=== PATIENT | male | born 1950 | race Caucasian/White ===

== ENCOUNTER 2017-04-05 00:58 | Emergency (ER) | payer MEDICARE, BC ==
[2017-04-05 02:23] VITALS: BP 152/90
[2017-04-05] MEDS ORDERED: cefTRIAXone 1,000 MG VIAL IM ONE (03:01)
--- NOTE | 2017-04-05 03:01 | EDM.PDOC ---
ED HPI GENERAL MEDICAL PROBLEM - General Chief Complaint: Genitourinary Problem Stated Complaint: BLOOD ON URINE Time Seen by Provider: 04/05/17 02:25 Source of Information: Reports: Patient History Limitations: Reports: No Limitations - History of Present Illness INITIAL COMMENTS - FREE TEXT/NARRATIVE: c/o blood in urine at 9:30 PM and midnight there was blood in his urine, slight dyruria, no f/c/d, no previous UTI dx bladder CA 01/[address] Malagon which was surgically removed, received topical chemo x 1, when biopsy results came back pt told to come for f/u in , has apt 04/24 begun on prostate pill bid ~4m ago also on Eliquis - Related Data Allergies Allergy/AdvReac Type Severity Reaction Status Date / Time No Known Allergies Allergy Verified 01/12/16 09:17 Home Meds: Home Meds Multivitamin [Daily Vitamin] 1 each PO BID 05/02/15 [History] Insulin Aspart Protam & Aspart [Novolog Mix 70-30 Flexpen Syrn] 12 unit SQ WITHDINNER 12/14/15 [History] Insuln Asp Prot/Insulin Aspart [NovoLOG Mix 70-30] 22 unit SUBCUT WITHBREAKFAST 12/14/15 [History] Pyridostigmine [Mestinon] 60 mg PO QID 12/14/15 [History] Valsartan/Hydrochlorothiazide [Valsartan-Hctz 80-12.5 mg Tab] 1 tab PO DAILY [History] azaTHIOprine [Imuran] 50 mg PO BID 12/14/15 [History] metFORMIN [Glucophage] 500 mg PO BID 12/14/15 [History] predniSONE [Prednisone] 40 mg PO DAILY 12/14/15 [History] Pantoprazole Sodium [Protonix] 40 mg PO DAILY #30 tablet. 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 Musculoskeletal History: Reports: Other (See Below) Other Musculoskeletal History: myasthenia gravis Neurological History: Reports: None Psychiatric History: Reports: None Endocrine/Metabolic History: Reports: Diabetes, Type II, Obesity/BMI 30+ Hematologic History: Reports: Anemia, Blood Transfusion(s) Immunologic History: Reports: None Oncologic (Cancer) History: Reports: None Dermatologic History: Reports: None - Past Surgical History Head Surgeries/Procedures: Reports: None HEENT Surgical History: Reports: Oral Surgery, Other (See Below) Musculoskeletal Surgical History: Reports: Arthroscopic Knee Social & Family History - Family History Neurological: Reports: CVA Oncologic: Reports: None - Tobacco Use Smoking Status *Q: Former Smoker Used Tobacco, but Quit: Yes Month Tobacco Last Used: sep Second Hand Smoke Exposure: No - Caffeine Use Caffeine Use: Reports: Coffee - Recreational Drug Use Recreational Drug Use: No ED ROS GENERAL - Review of Systems Review Of Systems: See Below Constitutional: Reports: No Symptoms HEENT: Reports: No Symptoms Respiratory: Reports: No Symptoms Cardiovascular: Reports: No Symptoms Endocrine: Reports: No Symptoms GI/Abdominal: Reports: No Symptoms : Reports: Dysuria, Hematuria Musculoskeletal: Reports: No Symptoms Skin: Reports: No Symptoms Neurological: Reports: No Symptoms Psychiatric: Reports: No Symptoms Hematologic/Lymphatic: Reports: No Symptoms Immunologic: Reports: No Symptoms ED EXAM, RENAL/ - Physical Exam Exam: See Below Exam Limited By: No Limitations General Appearance: Alert, WD/WN, No Apparent Distress Nose: Normal Inspection Throat/Mouth: Normal Inspection Head: Atraumatic, Normocephalic Neck: Normal Inspection, Supple, Non-Tender, Full Range of Motion. No: Lymphadenopathy (R) Respiratory/Chest: No Respiratory Distress, Lungs Clear, Normal Breath Sounds, No Accessory Muscle Use, Chest Non-Tender Cardiovascular: Regular Rate, Rhythm, No Edema, No Gallop, No Rub, Other (2/6 ADITYA at LSB) GI/Abdominal: Soft, Non-Tender, No Mass Back Exam: Normal Inspection, Full Range of Motion. No: CVA Tenderness (R), CVA Tenderness (L) Extremities: Normal Inspection, Normal Range of Motion, Non-Tender, Normal Capillary Refill, No Pedal Edema Neurological: Alert, Oriented, Normal Cognition, No Motor/Sensory Deficits Psychiatric: Normal Affect, Normal Mood Skin Exam: Warm, Dry, Intact, Normal Color, No Rash Lymphatic: No Adenopathy Course - Vital Signs Last Recorded V/S: Last Vital Signs Temp 36.4 C 04/05/17 01:05 Pulse 74 04/05/17 01:05 Resp 18 04/05/17 01:05 BP 152/90 H 04/05/17 01:05 Pulse Ox 95 04/05/17 01:05 - Orders/Labs/Meds Orders: Active Orders 24 hr Category Date Time Status CULTURE URINE [RM] Stat Lab 04/05/17 02:40 Uncollected Labs: Laboratory Tests 04/05/17 Range/Units 01:59 Urine Color Brown (YELLOW) Urine Appearance Cloudy (CLEAR) Urine pH 5.0 (5.0-6.5) Ur Specific [place] 1.020 (1.010-1.025) Urine Protein 100 H (NEGATIVE) mg/dL Urine Glucose (UA) 100 H (NEGATIVE) mg/dL Urine Ketones 15 H (NEGATIVE) mg/dL Urine Occult Blood Large H (NEGATIVE) Urine Nitrite Negative (NEGATIVE) Urine Bilirubin Small H (NEGATIVE) Urine Urobilinogen 1 H (NEGATIVE) mg/dL Ur Leukocyte Esterase Moderate H (NEGATIVE) Urine RBC >100 H (0) Urine WBC 10-20 H (0) Ur Squamous Epith Cells Occasional (NS,R,O) Urine Bacteria Moderate H (NS) Urine Mucus Few H (NS) Urine Yeast Few H (NS) - Re-Assessments/Exams Free Text/Narrative Re-Assessment/Exam: 04/05/17 03:01 no clinical evidence of pyelo or prostatitis, BERTA deferred, however pt cautioned that prostatitis could not be excluded and that he might need antbx for longer the 1w, UC pending Departure - Departure Time of Disposition: 03:02 Disposition: Home, Self-Care 01 Condition: Good Clinical Impression: Acute cystitis with hematuria, Bladder cancer - Discharge Information Prescriptions: Sulfamethoxazole/Trimethoprim [Bactrim 400-80 MG] 1 each PO BID #14 tablet Forms: ED Department Discharge Additional Instructions: For infection, take the antibiotic trimethoprim-sulfamethoxazole 1 tab 2 times a day for 7 days. Drink at least 2 liters of fluids daily for the next several days. A urine culture result will be back in [address] Malagon tomorrow to see when he would like to see you. Return to ED if you feel worse or are not improving in 2 days. Call your Physician or Return to Emergency Department if: * Your condition worsens in any way. * You develop fever greater than 100.4. * You have vomitting that does not stop with medications. * You have pain that is not controlled with medications. - My Orders Last 24 Hours: My Active Orders 04/05/17 02:40 CULTURE URINE [RM] Stat - Assessment/Plan Last 24 Hours: My Active Orders 04/05/17 02:40 CULTURE URINE [RM] Stat
--- NOTE | 2017-04-08 02:44 | ER ---
DATE SEEN: 04/05/2017 Urine culture was performed 04/05/[address] Martines. No growth on urine culture after 2 days. The patient then placed on TMP/SMX (Trimethoprim/sulfamethoxazole) b.i.d. for 7 days. /[id number] SUSHMA/IAN
== END 2017-04-05 03:35 | disposition home or self-care (01) ==
LOC: FB.ED 00:58
DX: N30.01 Acute cystitis with hematuria (principal); C67.9 Malignant neoplasm of bladder, unspecified; I10 Essential (primary) hypertension; E78.00 Pure hypercholesterolemia, unspecified; E11.9 Type 2 diabetes mellitus without complications; D64.9 Anemia, unspecified; E66.9 Obesity, unspecified; Z98.890 Other specified postprocedural states; Z86.718 Personal history of other venous thrombosis and embolism; Z87.891 Personal history of nicotine dependence; Z79.4 Long term (current) use of insulin; Z79.899 Other long term (current) drug therapy; Z68.33 Body mass index [BMI] 33.0-33.9, adult
CPT/HCPCS: 81001; 87086; 96372; 99283; J0696

== ENCOUNTER 2020-02-25 17:38 | Emergency (ER) | payer MEDICARE, BC ==
[2020-02-25] MEDS ORDERED: Sodium Chloride 0.9% 10 ML Syringe FLUSH PRN (18:13)
[2020-02-25] MEDS ORDERED: Sodium Chloride 0.9% 1,000 ML IV SCH (18:30)
[2020-02-25 18:34] VITALS: BP 160/119; PULSE 105
[2020-02-25] MEDS ORDERED: Potassium Chloride 20 MEQ Tab.ER PO ONE (18:58)
[2020-02-25] MEDS ORDERED: Sulfamethoxazole/Trimethoprim 800-160 MG Tab PO ONE (20:30)
--- NOTE | 2020-02-25 20:38 | EDM.PDOC ---
ED HPI GENERAL MEDICAL PROBLEM - General Chief Complaint: General Stated Complaint: FALLS Time Seen by Provider: 02/25/20 17:40 Source of Information: Reports: Patient History Limitations: Reports: No Limitations - History of Present Illness INITIAL COMMENTS - FREE TEXT/NARRATIVE: Patient presented to the ED because of weakness and fall. He tripped and fell and landed on his left side yesterday now c/o left hip pain. Today while working in his lawn he felt weak and fell. There is no chest pain, N/V/D. There is no cough or cold symptoms, no fever or chills. He also c/o some hematuria, denies any dysuria or frequency. Treatments STAMP PRESSER: Reports: Other (see below) Other Treatments STAMP PRESSER: bs check - Related Data Allergies Allergy/AdvReac Type Severity Reaction Status Date / Time No Known Allergies Allergy Verified 01/12/16 09:17 Home Meds: Home Meds Multivitamin [Daily Vitamin] 1 each PO BID 05/02/15 [History] Insulin Aspart Protam & Aspart [Novolog Mix 70-30 Flexpen Syrn] 20 unit SQ WITHDINNER 12/14/15 [History] Insuln Asp Prot/Insulin Aspart [NovoLOG Mix 70-30] 30 unit SUBCUT WITHBREAKFAST 12/14/15 [History] Pyridostigmine [Mestinon] 60 mg PO TID 12/14/15 [History] Valsartan/Hydrochlorothiazide [Valsartan-Hctz 80-12.5 mg Tab] 1 tab PO DAILY [History] azaTHIOprine [Imuran] 50 mg PO BID 12/14/15 [History] metFORMIN [Glucophage] 500 mg PO BID 12/14/15 [History] Pantoprazole Sodium [Protonix] 40 mg PO DAILY #30 tablet. 12/15/15 [Rx] Sucralfate [Carafate] 1 gm PO QIDACANDBED #120 ml 01/12/16 [Rx] Apixaban [Eliquis] 2.5 mg PO BID 02/25/20 [History] Calcium Carbonate [Calcium] 500 mg CHEW TID 02/25/20 [History] Famotidine 20 mg PO DAILY 02/25/20 [History] Finasteride 5 mg PO DAILY 02/25/20 [History] Nitrofurantoin Monohyd/M-Cryst [Macrobid 100 mg Capsule] 100 mg PO BID 02/25/20 [History] Potassium Chloride [Klor-Con M20] 40 meq PO DAILY #12 tab.er.prt 02/25/20 [Rx] Sulfamethoxazole/Trimethoprim [Bactrim Ds Tablet] 1 each PO BID #14 tablet 02/24 [Rx] Tamsulosin [Flomax] 0.4 mg PO BEDTIME 02/25/20 [History] atorvaSTATin [Lipitor] 10 mg PO BEDTIME 02/25/20 [History] predniSONE [Prednisone] 5 mg PO Q48H 02/25/20 [History] Past Medical History HEENT History: Reports: Cataract Other HEENT History: EYE DROOP Cardiovascular History: Reports: Blood Clots/VTE/DVT, High Cholesterol, Hypertension, SOB on Exertion Respiratory History: Reports: None Gastrointestinal History: Reports: Cholelithiasis, Other (See Below) Other Gastrointestinal History: occasional heartburn Genitourinary History: Reports: Urinary Incontinence 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 Musculoskeletal History: Reports: Other (See Below) Other Musculoskeletal History: myasthenia gravis Neurological History: Reports: None Psychiatric History: Reports: None Endocrine/Metabolic History: Reports: Diabetes, Type II, Obesity/BMI 30+ Hematologic History: Reports: Anemia, Blood Transfusion(s) Immunologic History: Reports: None Oncologic (Cancer) History: Reports: Bladder, Liver, Renal Dermatologic History: Reports: None - Past Surgical History Head Surgeries/Procedures: Reports: None HEENT Surgical History: Reports: Oral Surgery, Other (See Below) Musculoskeletal Surgical History: Reports: Arthroscopic Knee Social & Family History - Family History Family Medical History: Noncontributory Neurological: Reports: CVA Oncologic: Reports: None - Tobacco Use Smoking Status *Q: Never Smoker - Caffeine Use Caffeine Use: Reports: Soda - Recreational Drug Use Recreational Drug Use: No ED ROS GENERAL - Review of Systems Review Of Systems: See Below Constitutional: Reports: Weakness HEENT: Reports: No Symptoms Respiratory: Reports: No Symptoms Cardiovascular: Reports: No Symptoms Endocrine: Reports: No Symptoms GI/Abdominal: Reports: No Symptoms : Reports: Hematuria Musculoskeletal: Reports: No Symptoms Skin: Reports: No Symptoms ED EXAM, GENERAL - Physical Exam Exam: See Below Exam Limited By: No Limitations General Appearance: Alert, No Apparent Distress Eye Exam: Bilateral Eye: PERRL Ears: Normal External Exam, Normal Canal, Hearing Grossly Normal Nose: Normal Inspection, Normal Mucosa, No Blood Throat/Mouth: Normal Inspection, Normal Lips, Normal Teeth Head: Atraumatic, Normocephalic, Facial Swelling Neck: Normal Inspection, Supple, Non-Tender, Full Range of Motion Respiratory/Chest: No Respiratory Distress, Lungs Clear, Normal Breath Sounds Cardiovascular: Normal Peripheral Pulses, Regular Rate, Rhythm, No Edema, No Gallop, No JVD, No Murmur GI/Abdominal: Normal Bowel Sounds, Soft, Non-Tender, No Organomegaly Back Exam: Normal Inspection, Full Range of Motion Extremities: Normal Inspection, Normal Range of Motion Neurological: Alert, Oriented, CN II-XII Intact Psychiatric: Normal Affect, Normal Mood Skin Exam: Warm, Normal Color Course - Vital Signs Text/Narrative:: Labs/EKG/CXR was discussed with patient and verbalized full understanding NS 1 L bolus Klor con 40 meq po x1 Last Recorded V/S: Last Vital Signs Temp 36.9 C 02/25/20 17:38 Pulse 105 H 02/25/20 17:38 Resp 22 H 02/25/20 17:38 BP 160/119 H 02/25/20 17:38 Pulse Ox 96 02/25/20 17:38 - Orders/Labs/Meds Orders: Active Orders 24 hr Category Date Time Status EKG Documentation Completion [RC] ASDIRECTED Care 02/25/20 18:15 Active Chest 2V [CR] Stat Exams 02/25/20 18:16 Taken Hip Min 2V or 3V w Pelvis Lt [CR] Stat Exams 02/25/20 19:47 Taken CULTURE URINE [RM] Stat Lab 02/25/20 20:15 Received Saline Lock Insert [OM.PC] Routine Oth 02/25/20 18:13 Ordered EKG 12 Lead [EK] Routine Ther 02/25/20 18:13 Ordered Labs: Laboratory Tests 02/25/20 02/25/20 02/25/20 Range/Units 18:22 18:22 18:22 WBC 8.6 (4.5-12.0) X10-3/uL RBC 4.78 (4.30-5.75) x10(6)uL Hgb 13.8 (13.5-17.8) g/dL Hct 43.7 D (30.0-51.3) % MCV 91.4 (80-96) fL MCH 28.8 (27.7-33.6) pg MCHC 31.5 L (32.2-35.4) g/dL RDW 14.6 (11.5-15.5) % Plt Count 201 (125-369) X10(3)uL MPV 6.7 L (7.4-10.4) fL Neut % (Auto) 80.1 (46-82) % Lymph % (Auto) 7.5 L (13-37) % [place] % (Auto) 11.9 (4-12) % Eos % (Auto) 0 L (1.0-5.0) % Baso % (Auto) 0 (0-2) % Neut # (Auto) 7.0 (1.6-8.3) # Lymph # (Auto) 0.6 (0.6-5.0) # [place] # (Auto) 1.0 (0.0-1.3) # Eos # (Auto) 0.0 (0.0-0.8) # Baso # (Auto) 0.0 (0.0-0.2) # Sodium 138 (135-145) mmol/L Potassium 2.8 L* (3.5-5.3) mmol/L Chloride 100 (100-110) mmol/L Carbon Dioxide 29 (21-32) mmol/L BUN 12 (7-18) mg/dL Creatinine 1.2 (0.70-1.30) mg/dL Est Cr Clr Drug Dosing 62.87 mL/min Estimated GFR (MDRD) 60 (>60) BUN/Creatinine Ratio 10.0 (9-20) Glucose 139 H (80-116) mg/dL Calcium 8.4 L (8.6-10.2) mg/dL Total Bilirubin 1.9 H (0.1-1.3) mg/dL AST 26 H (5-25) IU/L ALT 34 (12-36) U/L Alkaline Phosphatase 61 (56-112) IU/L Creatine Kinase 327 H* (60-160) IU/L Troponin I 21.6 (4.0-60.3) pg/mL Total Protein 6.8 (6.0-8.0) g/dL Albumin 3.4 (3.2-4.6) g/dL Globulin 3.4 g/dL Albumin/Globulin Ratio 1.0 Urine Color (YELLOW) Urine Appearance (CLEAR) Urine pH (5.0-6.5) Ur Specific [place] (1.010-1.025) Urine Protein (NEGATIVE) mg/dL Urine Glucose (UA) (NORMAL) mg/dL Urine Ketones (NEGATIVE) mg/dL Urine Occult Blood (NEGATIVE) Urine Nitrite (NEGATIVE) Urine Bilirubin (NEGATIVE) Urine Urobilinogen (NEGATIVE) mg/dL Ur Leukocyte Esterase (NEGATIVE) Urine RBC (0-5) Urine WBC (0-5) Ur Squamous Epith Cells (NS,R,O) Urine Bacteria (NS) 02/25/20 Range/Units 20:15 WBC (4.5-12.0) X10-3/uL RBC (4.30-5.75) x10(6)uL Hgb (13.5-17.8) g/dL Hct (30.0-51.3) % MCV (80-96) fL MCH (27.7-33.6) pg MCHC (32.2-35.4) g/dL RDW (11.5-15.5) % Plt Count (125-369) X10(3)uL MPV (7.4-10.4) fL Neut % (Auto) (46-82) % Lymph % (Auto) (13-37) % [place] % (Auto) (4-12) % Eos % (Auto) (1.0-5.0) % Baso % (Auto) (0-2) % Neut # (Auto) (1.6-8.3) # Lymph # (Auto) (0.6-5.0) # [place] # (Auto) (0.0-1.3) # Eos # (Auto) (0.0-0.8) # Baso # (Auto) (0.0-0.2) # Sodium (135-145) mmol/L Potassium (3.5-5.3) mmol/L Chloride (100-110) mmol/L Carbon Dioxide (21-32) mmol/L BUN (7-18) mg/dL Creatinine (0.70-1.30) mg/dL Est Cr Clr Drug Dosing mL/min Estimated GFR (MDRD) (>60) BUN/Creatinine Ratio (9-20) Glucose (80-116) mg/dL Calcium (8.6-10.2) mg/dL Total Bilirubin (0.1-1.3) mg/dL AST (5-25) IU/L ALT (12-36) U/L Alkaline Phosphatase (56-112) IU/L Creatine Kinase (60-160) IU/L Troponin I (4.0-60.3) pg/mL Total Protein (6.0-8.0) g/dL Albumin (3.2-4.6) g/dL Globulin g/dL Albumin/Globulin Ratio Urine Color [place] (YELLOW) Urine Appearance Slightly cloudy (CLEAR) Urine pH 5.0 (5.0-6.5) Ur Specific [place] 1.015 (1.010-1.025) Urine Protein 30 H (NEGATIVE) mg/dL Urine Glucose (UA) Normal (NORMAL) mg/dL Urine Ketones Negative (NEGATIVE) mg/dL Urine Occult Blood Large H (NEGATIVE) Urine Nitrite Positive H (NEGATIVE) Urine Bilirubin Negative (NEGATIVE) Urine Urobilinogen Normal (NEGATIVE) mg/dL Ur Leukocyte Esterase Moderate H (NEGATIVE) Urine RBC 30-40 H (0-5) Urine WBC 5-10 H (0-5) Ur Squamous Epith Cells Few H (NS,R,O) Urine Bacteria Many H (NS) Meds: Medications Discontinued Medications Generic Name Dose Route Start Last Admin Trade Name Freq PRN Reason Stop Dose Admin Sodium Chloride 1,000 mls @ 999 mls/hr 02/25/20 18:30 02/25/20 19:10 Normal Saline IV 999 mls/hr ASDIRECTED SILVIA Administration Potassium Chloride 40 meq 02/25/20 18:58 02/25/20 19:18 Klor-Con M20 PO 02/25/20 18:59 40 meq ONETIME ONE Administration Sodium Chloride 10 ml 02/25/20 18:13 02/25/20 19:05 Saline Flush FLUSH 10 ml ASDIRECTED PRN Administration Keep Vein Open Trimethoprim/Sulfamethoxazole 1 tab 02/25/20 20:30 02/25/20 20:34 Septra Ds PO 02/25/20 20:31 1 tab ONETIME ONE Administration Departure - Departure Time of Disposition: 20:35 Disposition: Home, Self-Care 01 Condition: Good Clinical Impression: Hypokalemia, UTI (urinary tract infection) - Discharge Information Prescriptions: Potassium Chloride [Klor-Con M20] 40 meq PO DAILY #12 tab.er.prt Sulfamethoxazole/Trimethoprim [Bactrim Ds Tablet] 1 each PO BID #14 tablet Instructions: Hypokalemia, Urinary Tract Infection, Adult Referrals: Marv Gaitan MD [Primary Care Provider] - Forms: ED Department Discharge Additional Instructions: Please read discharge instructions on low potassium and UTI Increase oral fluids Take klor con 20 meq, take 2 tablets 3 times daily for 2 days Bactrim DS 1 tablet twice daily for 7 days Follow up as needed Sepsis Event Note (ED) - Evaluation Sepsis Screening Result: Possible Sepsis Risk - Focused Exam Vital Signs: Vital Signs Temp Pulse Resp BP Pulse Ox 02/25/20 17:38 36.9 C 105 H 22 H 160/119 H 96 - My Orders Last 24 Hours: My Active Orders 02/25/20 18:13 Saline Lock Insert [OM.PC] Routine EKG 12 Lead [EK] Routine 02/25/20 18:15 EKG Documentation Completion [RC] ASDIRECTED 02/25/20 18:16 Chest 2V [CR] Stat 02/25/20 19:47 Hip Min 2V or 3V w Pelvis Lt [CR] Stat 02/25/20 20:15 CULTURE URINE [RM] Stat - Assessment/Plan Last 24 Hours: My Active Orders 02/25/20 18:13 Saline Lock Insert [OM.PC] Routine EKG 12 Lead [EK] Routine 02/25/20 18:15 EKG Documentation Completion [RC] ASDIRECTED 02/25/20 18:16 Chest 2V [CR] Stat 02/25/20 19:47 Hip Min 2V or 3V w Pelvis Lt [CR] Stat 02/25/20 20:15 CULTURE URINE [RM] Stat
--- NOTE | 2020-02-26 18:41 | CR ---
INDICATION: Fall. Left hip pain. LEFT HIP AND PELVIS: Frontal and lateral views of the left hip with 2 views of the pelvis in AP projection were obtained 02/25/20 - no comparisons. An acute fracture or dislocation was not identified. Bone density appeared to be normal. Sacroiliac joints were intact, as well as the hip joints. A calcific rim density is noted in the left lower quadrant measuring approximately 43 mm which was present on a previous CT scan of 01/04/17 and at that time measured approximately 36 mm in maximum diameter. It is a calcified rim low-density lesion exophytically off the lower pole of the left kidney, most likely representing a benign structure, possibly postinfectious or posthemorrhagic cyst. IMPRESSION: 1. No acute fracture or dislocation. 2. Probable calcified lower pole renal cyst left kidney; present since at least 2016. MTDD
--- NOTE | 2020-02-26 18:45 | CR ---
INDICATION: Weakness. Cough. CHEST, TWO VIEWS: Two PA views and a lateral view of the chest were obtained and compared with 12/14/15. There is again noted a mass behind the heart with an air-fluid level compatible with a moderately large fixed hiatal hernia. The heart did not appear enlarged and appeared normal in shape. The aorta is tortuous. Somewhat flattened diaphragm leaves, prominent AP diameter and hyperaeration suggests COPD. An active infiltrate or effusion was not identified. Overlying EKG leads are noted. Mild to moderate bridging hyperostotic changes are noted in the mid thoracic spine. IMPRESSION: 1. COPD. 2. ASD aorta. 3. Large fixed hiatal hernia. MTDD
== END 2020-02-25 21:10 | disposition home or self-care (01) ==
LOC: FB.ED 17:38
DX: E87.6 Hypokalemia (principal); N39.0 Urinary tract infection, site not specified; R22.0 Localized swelling, mass and lump, head; E11.9 Type 2 diabetes mellitus without complications; E66.9 Obesity, unspecified; I10 Essential (primary) hypertension; E78.00 Pure hypercholesterolemia, unspecified; Z68.33 Body mass index [BMI] 33.0-33.9, adult; Z79.4 Long term (current) use of insulin; Z79.899 Other long term (current) drug therapy; W01.0XXA Fall on same level from slipping, tripping and stumbling without subsequent striking against object, initial encounter
CPT/HCPCS: 36415; 71046; 73502-LT; 80053; 81001; 82550; 84484; 85025; 87086; 87088; 87186; 93005; 99283; 99285-25; A9270-GY; J7030

== ENCOUNTER 2022-03-19 01:55 | Inpatient (IN) | payer MEDICARE, BC ==
[2022-03-19] MEDS ORDERED: Metoprolol Tartrate 50 MG Tab PO STA (02:38)
[2022-03-19] MEDS ORDERED: Labetalol 20 MG/4 ML Syringe IVPUSH STA (02:39)
[2022-03-19] MEDS ORDERED: Sodium Chloride 0.9% 1,000 ML IV SCH (02:45)
[2022-03-19 03:07] LABS: ESTIMATED GFR 58 mL/min (>60)
[2022-03-19] MEDS ORDERED: Ondansetron 4 MG/2 ML SDV IV PRN (06:01)
[2022-03-19] MEDS ORDERED: Enoxaparin 40 MG/0.4 ML Syringe SUBCUT SCH (06:15)
[2022-03-19] MEDS ORDERED: Acetaminophen 500 MG Tab PO PRN (06:28)
[2022-03-19] MEDS: cefTRIAXone 1 GM Vial IVPUSH SCH (07:33)
[2022-03-19] MEDS: Pantoprazole 40 MG Tab.CR PO SCH (07:34)
[2022-03-19] MEDS: Sucralfate 1 GM Tab PO SCH ×4 (07:35→20:28)
[2022-03-19] MEDS ORDERED: Glucagon,Human Recombinant 1 MG Vial IM PRN ×2 (08:56→08:57)
[2022-03-19] MEDS ORDERED: 50% Dextrose in Water 50 ML Syringe IVPUSH PRN ×2 (08:56→08:57)
[2022-03-19] MEDS ORDERED: Calcium Carbonate 500 MG Tab.Chew CHEW SCH (09:00)
[2022-03-19] MEDS: Ascorbic Acid 500 MG Tab PO SCH (09:10)
[2022-03-19] MEDS: Hydrochlorothiazide 12.5 MG Cap PO SCH (09:10)
[2022-03-19] MEDS: Famotidine 20 MG Tab PO SCH (09:10)
[2022-03-19] MEDS: Finasteride 5 MG Tab PO SCH (09:10)
[2022-03-19] MEDS: Multivitamin Tab PO SCH ×2 (09:10→20:28)
[2022-03-19] MEDS: predniSONE 5 MG Tab PO SCH (09:11)
[2022-03-19] MEDS: Apixaban 2.5 MG Tab PO SCH ×2 (09:17→20:28)
[2022-03-19] MEDS: Calcium Carbonate 500 MG Tab.Chew PO SCH ×3 (09:48→20:28)
[2022-03-19] MEDS ORDERED: Insulin Lispro Protamine/Lispro 75-25 100 Units/ML 3 ML KwikPen SUBCUT ONE (09:49)
[2022-03-19] MEDS: Insulin Lispro Protamine/Lispro 75-25 100 Units/ML 3 ML KwikPen SUBCUT SCH ×2 (09:53→18:11)
[2022-03-19] MEDS ORDERED: REMDESIVIR 200 MG in Sodium Chloride 0.9% 100 ML IV SCH (11:00)
[2022-03-19] MEDS ORDERED: REMDESIVIR 200 MG in Sodium Chloride 0.9% 250 ML IV ONE (11:00)
[2022-03-19] MEDS ORDERED: Insulin Lispro 100 Unit/ML 3 ML KwikPen SUBCUT ONE ×2 (11:07→21:31)
[2022-03-19] MEDS: Dexamethasone 2 MG Tab PO SCH (11:19)
[2022-03-19] MEDS: Insulin Lispro 100 Unit/ML 3 ML KwikPen SUBCUT SCH ×2 (11:20→18:14)
[2022-03-19] MEDS: Sodium Chloride 0.9% 10 ML Syringe FLUSH PRN (11:28)
[2022-03-19] MEDS: Sodium Chloride 0.9% 1,000 ML IV SCH ×2 (13:57→23:00)
[2022-03-19] MEDS ORDERED: Calcium Carbonate 500 MG Tab.Chew PO SCH (14:00)
[2022-03-19] MEDS ORDERED: [UNRECOGNIZED DRUG - OTHER] SQ SCH (18:00)
[2022-03-19] MEDS ORDERED: INSULIN ASPART PROTAM SQ SCH (18:00)
[2022-03-19] MEDS ORDERED: ASPART SQ SCH (18:00)
[2022-03-19] MEDS: atorvaSTATin 10 MG Tab PO SCH (20:27)
[2022-03-19] MEDS: Tamsulosin 0.4 MG Cap.ER PO SCH (20:28)
[2022-03-20] MEDS: Sucralfate 1 GM Tab PO SCH ×4 (06:33→21:29)
[2022-03-20] MEDS: Pantoprazole 40 MG Tab.CR PO SCH (06:33)
[2022-03-20] MEDS: cefTRIAXone 1 GM Vial IVPUSH SCH (06:35)
[2022-03-20 06:57] LABS: ESTIMATED GFR 71 mL/min (>60)
[2022-03-20] MEDS: Insulin Lispro 100 Unit/ML 3 ML KwikPen SUBCUT SCH ×3 (08:15→18:13)
[2022-03-20] MEDS: Insulin Lispro Protamine/Lispro 75-25 100 Units/ML 3 ML KwikPen SUBCUT SCH ×2 (08:16→18:15)
[2022-03-20] MEDS: Dexamethasone 2 MG Tab PO SCH (08:19)
[2022-03-20] MEDS: Famotidine 20 MG Tab PO SCH (08:20)
[2022-03-20] MEDS: Hydrochlorothiazide 12.5 MG Cap PO SCH (08:20)
[2022-03-20] MEDS: Finasteride 5 MG Tab PO SCH (08:21)
[2022-03-20] MEDS: Apixaban 2.5 MG Tab PO SCH ×2 (08:22→21:23)
[2022-03-20] MEDS: Ascorbic Acid 500 MG Tab PO SCH (08:22)
[2022-03-20] MEDS: Multivitamin Tab PO SCH ×2 (08:22→21:42)
[2022-03-20] MEDS: Calcium Carbonate 500 MG Tab.Chew PO SCH ×3 (08:22→21:24)
[2022-03-20] MEDS: Sodium Chloride 0.9% 1,000 ML IV SCH (09:15)
[2022-03-20] MEDS: REMDESIVIR 100 MG in Sodium Chloride 0.9% 100 ML IV SCH (10:53)
[2022-03-20] MEDS ORDERED: REMDESIVIR 100 MG in Sodium Chloride 0.9% 100 ML IV SCH (11:00)
[2022-03-20] MEDS: Amoxicillin/Clavulanate K 875-125 MG Tab PO SCH ×2 (14:03→21:42)
[2022-03-20] MEDS: atorvaSTATin 10 MG Tab PO SCH (21:29)
[2022-03-20] MEDS: Tamsulosin 0.4 MG Cap.ER PO SCH (21:29)
[2022-03-21] MEDS: Hydrochlorothiazide 12.5 MG Cap PO SCH (09:17)
[2022-03-21] MEDS: Calcium Carbonate 500 MG Tab.Chew PO SCH ×3 (09:17→21:14)
[2022-03-21] MEDS: Sucralfate 1 GM Tab PO SCH ×4 (09:18→21:14)
[2022-03-21] MEDS: Ascorbic Acid 500 MG Tab PO SCH (09:18)
[2022-03-21] MEDS: predniSONE 5 MG Tab PO SCH (09:18)
[2022-03-21] MEDS: Finasteride 5 MG Tab PO SCH (09:18)
[2022-03-21] MEDS: Amoxicillin/Clavulanate K 875-125 MG Tab PO SCH (09:18)
[2022-03-21] MEDS: Apixaban 2.5 MG Tab PO SCH ×2 (09:18→21:18)
[2022-03-21] MEDS: Multivitamin Tab PO SCH ×2 (09:18→21:24)
[2022-03-21] MEDS: Dexamethasone 2 MG Tab PO SCH (09:18)
[2022-03-21] MEDS: Pantoprazole 40 MG Tab.CR PO SCH (09:18)
[2022-03-21] MEDS: Famotidine 20 MG Tab PO SCH (09:19)
[2022-03-21] MEDS: Insulin Lispro Protamine/Lispro 75-25 100 Units/ML 3 ML KwikPen SUBCUT SCH ×2 (09:20→17:25)
[2022-03-21] MEDS: Insulin Lispro 100 Unit/ML 3 ML KwikPen SUBCUT SCH ×3 (09:21→17:26)
[2022-03-21] MEDS: REMDESIVIR 100 MG in Sodium Chloride 0.9% 100 ML IV SCH (11:09)
[2022-03-21] MEDS: Ciprofloxacin 250 MG Tab PO SCH ×2 (11:09→21:15)
[2022-03-21] MEDS: Tamsulosin 0.4 MG Cap.ER PO SCH (21:15)
[2022-03-21] MEDS: atorvaSTATin 10 MG Tab PO SCH (21:18)
[2022-03-22] MEDS: Sucralfate 1 GM Tab PO SCH ×4 (07:00→20:35)
[2022-03-22] MEDS: Pantoprazole 40 MG Tab.CR PO SCH (07:00)
[2022-03-22] MEDS: Calcium Carbonate 500 MG Tab.Chew PO SCH ×3 (08:05→20:35)
[2022-03-22] MEDS: Ciprofloxacin 250 MG Tab PO SCH ×2 (08:05→20:35)
[2022-03-22] MEDS: Multivitamin Tab PO SCH ×2 (08:07→20:35)
[2022-03-22] MEDS: Dexamethasone 2 MG Tab PO SCH (08:07)
[2022-03-22] MEDS: Ascorbic Acid 500 MG Tab PO SCH (08:07)
[2022-03-22] MEDS: Finasteride 5 MG Tab PO SCH (08:08)
[2022-03-22] MEDS: Hydrochlorothiazide 12.5 MG Cap PO SCH (08:08)
[2022-03-22] MEDS: Famotidine 20 MG Tab PO SCH (08:08)
[2022-03-22] MEDS: Apixaban 2.5 MG Tab PO SCH ×2 (08:09→20:35)
[2022-03-22] MEDS: Insulin Lispro 100 Unit/ML 3 ML KwikPen SUBCUT SCH ×3 (08:10→17:38)
[2022-03-22] MEDS: Insulin Lispro Protamine/Lispro 75-25 100 Units/ML 3 ML KwikPen SUBCUT SCH ×2 (08:12→17:39)
[2022-03-22] MEDS ORDERED: REMDESIVIR 100 MG in Sodium Chloride 0.9% 100 ML IV SCH (11:00)
[2022-03-22] MEDS: REMDESIVIR 100 MG in Sodium Chloride 0.9% 100 ML IV SCH (11:20)
[2022-03-22] MEDS: Sodium Chloride 0.9% 10 ML Syringe FLUSH PRN ×2 (11:29→12:24)
[2022-03-22] MEDS: atorvaSTATin 10 MG Tab PO SCH (20:35)
[2022-03-22] MEDS: Tamsulosin 0.4 MG Cap.ER PO SCH (20:37)
[2022-03-23] MEDS: Pantoprazole 40 MG Tab.CR PO SCH (06:30)
[2022-03-23] MEDS: Sucralfate 1 GM Tab PO SCH ×2 (06:30→11:57)
[2022-03-23] MEDS: Calcium Carbonate 500 MG Tab.Chew PO SCH (08:28)
[2022-03-23] MEDS: Hydrochlorothiazide 12.5 MG Cap PO SCH (08:28)
[2022-03-23] MEDS: Apixaban 2.5 MG Tab PO SCH (08:30)
[2022-03-23] MEDS: Ascorbic Acid 500 MG Tab PO SCH (08:30)
[2022-03-23] MEDS: Dexamethasone 2 MG Tab PO SCH (08:31)
[2022-03-23] MEDS: Ciprofloxacin 250 MG Tab PO SCH (08:31)
[2022-03-23] MEDS: Finasteride 5 MG Tab PO SCH (08:32)
[2022-03-23] MEDS: Multivitamin Tab PO SCH (08:33)
[2022-03-23 08:34] VITALS: BP 149/86
[2022-03-23] MEDS: Insulin Lispro Protamine/Lispro 75-25 100 Units/ML 3 ML KwikPen SUBCUT SCH (08:34)
[2022-03-23] MEDS: Famotidine 20 MG Tab PO SCH (08:34)
[2022-03-23] MEDS ORDERED: REMDESIVIR 100 MG in Sodium Chloride 0.9% 100 ML IV ONE (09:00)
[2022-03-23] MEDS: Insulin Lispro 100 Unit/ML 3 ML KwikPen SUBCUT SCH ×2 (11:40→13:25)
[2022-03-23 13:52] VITALS: PULSE 70
[2022-03-23 22:13] LABS: HBSAG SCREEN Negative (Negative); HCV AB 0.1 s/co ratio (0.0-0.9); HEP A AB, IGM Negative (Negative); HEP B CORE AB, IGM Negative (Negative)
== END 2022-03-23 12:34 | disposition home or self-care (01) | DRG 178 ==
LOC: FB.ED 01:58 → FB.MS 06:03
PROVIDERS: ADMIT Emergency Medicine; ATTEND Student in an Organized Health Care Education/Training Program
PROC: XW033E5 Introduction of Remdesivir Anti-infective into Peripheral Vein, Percutaneous Approach, New Technology Group 5 (ICD-10-PCS; principal; 2022-03-19)
PROC: 3E0DX3Z Introduction of Anti-inflammatory into Mouth and Pharynx, External Approach (ICD-10-PCS; 2022-03-19)
DX: U07.1 COVID-19 (principal); N39.0 Urinary tract infection, site not specified; R53.1 Weakness; R29.6 Repeated falls; M62.82 Rhabdomyolysis; N30.01 Acute cystitis with hematuria; E11.9 Type 2 diabetes mellitus without complications; T79.6XXA Traumatic ischemia of muscle, initial encounter; W19.XXXA Unspecified fall, initial encounter; Z91.81 History of falling; E78.5 Hyperlipidemia, unspecified; I10 Essential (primary) hypertension; G70.00 Myasthenia gravis without (acute) exacerbation; N42.9 Disorder of prostate, unspecified; R32 Unspecified urinary incontinence; Z85.51 Personal history of malignant neoplasm of bladder; Z85.05 Personal history of malignant neoplasm of liver; Z79.01 Long term (current) use of anticoagulants; Z79.84 Long term (current) use of oral hypoglycemic drugs; D49.89 Neoplasm of unspecified behavior of other specified sites; K29.50 Unspecified chronic gastritis without bleeding; K44.9 Diaphragmatic hernia without obstruction or gangrene; R79.89 Other specified abnormal findings of blood chemistry; I51.7 Cardiomegaly; E78.00 Pure hypercholesterolemia, unspecified; Z85.528 Personal history of other malignant neoplasm of kidney; Z79.4 Long term (current) use of insulin; Z86.718 Personal history of other venous thrombosis and embolism; Z79.52 Long term (current) use of systemic steroids; Z79.899 Other long term (current) drug therapy; Z90.49 Acquired absence of other specified parts of digestive tract
CPT/HCPCS: 36415; 71045; 80048; 80053; 80074; 80076; 81001; 82550; 82947; 84484; 85025; 87086; 87088; 87186; 93005; 93010; 96361; 96374; 99284; 99285-25; A9270-GY; J0696; J1815; J1815-GY; J3490; J7030; J7050; J7500; J7512; J8540; U0002

== ENCOUNTER 2023-10-29 08:12 | Day surgery (SDC) | payer MEDICARE, BC ==
[2023-10-29] MEDS: Lactated Ringers 1,000 ML IV SCH (08:05)
[~2023-10-29 08:12] MED LIST: Sodium Chloride 0.9% 10 ML Syringe FLUSH PRN
[2023-10-29] MEDS ORDERED: Lidocaine 2% 100 MG/5 ML Syringe IVPUSH ONE (08:13)
[2023-10-29] MEDS ORDERED: Propofol 200 MG/20 ML SDV IV ONE (08:13)
[2023-10-29] MEDS: Simethicone Drops 40 MG/0.6 ML 30 ML Bottle PO ONE (08:17)
[2023-10-29 10:30] VITALS: BP 145/94; PULSE 89
== END 2023-10-29 09:48 | disposition home or self-care (01) ==
LOC: FB.SDS 08:12
PROVIDERS: ATTEND Surgery
DX: K57.30 Diverticulosis of large intestine without perforation or abscess without bleeding (principal); I48.91 Unspecified atrial fibrillation; E11.22 Type 2 diabetes mellitus with diabetic chronic kidney disease; I12.9 Hypertensive chronic kidney disease with stage 1 through stage 4 chronic kidney disease, or unspecified chronic kidney disease; N18.2 Chronic kidney disease, stage 2 (mild); N40.1 Benign prostatic hyperplasia with lower urinary tract symptoms; E78.5 Hyperlipidemia, unspecified; Z87.891 Personal history of nicotine dependence; Z90.49 Acquired absence of other specified parts of digestive tract; Z79.01 Long term (current) use of anticoagulants; Z79.84 Long term (current) use of oral hypoglycemic drugs; Z79.899 Other long term (current) drug therapy
CPT/HCPCS: 45378; 82947; A9270; J2704; J7120; 00811; 99100

== ENCOUNTER 2023-12-04 08:06 | Day surgery (SDC) | payer MEDICARE, BC ==
[2023-12-04] MEDS ORDERED: Glucagon,Human Recombinant 1 MG Vial IV ONE (08:07)
[2023-12-04] MEDS ORDERED: Lidocaine 2% 100 MG/5 ML Syringe IVPUSH ONE (08:07)
[2023-12-04] MEDS ORDERED: Phenylephrine 0.5% Nasal Spray 15 ML Bot NAS ONE (08:07)
[2023-12-04] MEDS ORDERED: Propofol 200 MG/20 ML SDV IV ONE (08:07)
[2023-12-04] MEDS ORDERED: Sodium Chloride 0.9% 10 ML Syringe FLUSH PRN (08:15)
[2023-12-04] MEDS: Lactated Ringers 1,000 ML IV SCH (08:45)
[2023-12-04 11:45] VITALS: BP 120/72; PULSE 80
== END 2023-12-04 11:23 | disposition home or self-care (01) ==
LOC: FB.SDS 08:06
PROVIDERS: ATTEND Surgery
DX: K57.30 Diverticulosis of large intestine without perforation or abscess without bleeding (principal); R19.5 Other fecal abnormalities; E78.5 Hyperlipidemia, unspecified; I10 Essential (primary) hypertension; K44.9 Diaphragmatic hernia without obstruction or gangrene; E11.65 Type 2 diabetes mellitus with hyperglycemia; Z53.9 Procedure and treatment not carried out, unspecified reason; Z79.899 Other long term (current) drug therapy; Z87.891 Personal history of nicotine dependence
CPT/HCPCS: 00811; 99100; A9270-GY; J1610; J2704; J7120

== ENCOUNTER 2025-04-12 17:15 | Inpatient (IN) | payer MEDICARE, BC ==
[2025-04-12 17:52] LABS: MEAN PLATELET VOLUME 6.7 fL (6.7-11.0); PLATELET COUNT,PLT 175 x10(3)uL (117-477); RED BLOOD CELL COUNT 4.30 x10(6)uL (3.90-5.90); RED CELL DISTRIBUTION WIDTH 15.3 % (12.4-15.0); WHITE BLOOD CELL COUNT,WBC 11.5 x10-3/uL (3.2-10.1)
[2025-04-12 17:53] LABS: BLOOD UREA NITROGEN,BUN 18 mg/dL (7-18); CARBON DIOXIDE,CO2 27 mmol/L (21-32); CHLORIDE,CL 100 mmol/L (100-110); CREATININE 1.6 mg/dL (0.70-1.30); EST CRCL DRUG DOSING (CG) 43.78 mL/min; ESTIMATED GFR 45 mL/min (>60); GLUCOSE RANDOM 196 mg/dL (80-116); POTASSIUM,K 3.9 mmol/L (3.5-5.3); SODIUM,NA 137 mmol/L (135-145)
[2025-04-12 17:59] LABS: A/G RATIO 1.1; ALANINE AMINOTRANSFERASE,ALT 28 U/L (12-36); ASPARTATE AMNIOTRANSFERASE,AST 24 IU/L (5-25); BILIRUBIN TOTAL 1.5 mg/dL (0.1-1.3); PROTEIN TOTAL,TP 7.0 g/dL (6.0-8.0)
[2025-04-12 18:02] LABS: BASE EXCESS VENOUS,POC -3 mmol/L (-2 - 3+); PCO2 VENOUS,POC 41 mmHg (41-51); PH VENOUS,POC 7.35 pH Units (7.32-7.43)
[2025-04-12] MEDS: Diltiazem 25 MG/5 ML SDV IVPUSH ONE (18:08)
[2025-04-12] MEDS: Hydrocortisone Sodium Succinate 100 MG/2 ML SDV IVPUSH ONE (18:08)
[2025-04-12] MEDS: Sodium Chloride 0.9% 10 ML Syringe FLUSH PRN (18:08)
[2025-04-12 18:13] LABS: GLUCOSE,URINE NORMAL (NORMAL); OCCULT BLOOD,URINE LARGE (NEGATIVE)
[2025-04-12 18:14] LABS: APPEARANCE,URINE SLIGHTLY CLOUDY (CLEAR)
[2025-04-12 18:24] LABS: SQUAMOUS EPITHELIAL CELLS,UR RARE (NS,R,O)
[2025-04-12 18:32] LABS: LYMPHOCYTES PERCENT MAN 1 % (13-37); MONOCYTES PERCENT MAN 2 % (4-12); SEG NEUTROPHILS PERCENT MAN 97 % (46-82)
[2025-04-12] MEDS ORDERED: Ondansetron 4 MG/2 ML SDV IV PRN (19:30)
[2025-04-12] MEDS ORDERED: Albuterol 0.083% 2.5 MG/3 ML Neb Soln NEB PRN (19:30)
[2025-04-12] MEDS ORDERED: 50% Dextrose in Water 50 ML Syringe IVPUSH PRN (19:42)
[2025-04-12] MEDS: Diltiazem 120 MG Cap.CD PO ONE (21:18)
[2025-04-12] MEDS: Insulin Regular, Human 100 Units/ML 10 ML Vial SUBCUT SCH (21:19)
[2025-04-12] MEDS: Saccharomyces Boulardii (Probiotic) 250 MG Cap PO SCH (21:21)
[2025-04-13 06:30] LABS: MEAN PLATELET VOLUME 6.9 fL (6.7-11.0); PLATELET COUNT,PLT 149 x10(3)uL (117-477); RED BLOOD CELL COUNT 3.61 x10(6)uL (3.90-5.90); RED CELL DISTRIBUTION WIDTH 15.5 % (12.4-15.0); WHITE BLOOD CELL COUNT,WBC 8.5 x10-3/uL (3.2-10.1)
[2025-04-13 06:36] LABS: BLOOD UREA NITROGEN,BUN 16 mg/dL (7-18); CARBON DIOXIDE,CO2 29 mmol/L (21-32); CHLORIDE,CL 107 mmol/L (100-110); CREATININE 1.4 mg/dL (0.70-1.30); EST CRCL DRUG DOSING (CG) 50.04 mL/min; ESTIMATED GFR 52 mL/min (>60); GLUCOSE RANDOM 173 mg/dL (80-116); POTASSIUM,K 4.1 mmol/L (3.5-5.3); SODIUM,NA 142 mmol/L (135-145)
[2025-04-13 06:57] LABS: LYMPHOCYTES PERCENT MAN 2 % (13-37); MONOCYTES PERCENT MAN 9 % (4-12); SEG NEUTROPHILS PERCENT MAN 89 % (46-82)
[2025-04-13] MEDS: methylPREDNISolone Sodium Succinate 40 MG/1 ML SDV IVPUSH SCH (07:50)
[2025-04-13] MEDS ORDERED: Insulin Lispro Protamine/Lispro 75-25 100 Units/ML 3 ML KwikPen SUBCUT SCH (08:00)
[2025-04-13] MEDS ORDERED: Non-Formulary Medication 1 Each (Metformin [Glucophage] 850 MG Tablet) PO SCH (08:00)
[2025-04-13] MEDS: Insulin Lispro Protamine/Lispro 75-25 100 Units/ML 3 ML KwikPen SUBCUT SCH ×2 (08:37→17:59)
[2025-04-13] MEDS: Insulin Lispro 100 Unit/ML 3 ML KwikPen SUBCUT SCH (11:59)
[2025-04-13] MEDS: PYRIDOSTIGMINE 60 MG PO SCH (14:56)
[2025-04-14 06:28] LABS: MEAN PLATELET VOLUME 7.3 fL (6.7-11.0); PLATELET COUNT,PLT 156 x10(3)uL (117-477); RED BLOOD CELL COUNT 3.55 x10(6)uL (3.90-5.90); RED CELL DISTRIBUTION WIDTH 15.4 % (12.4-15.0); WHITE BLOOD CELL COUNT,WBC 9.2 x10-3/uL (3.2-10.1)
[2025-04-14 06:37] LABS: A/G RATIO 0.9; ALANINE AMINOTRANSFERASE,ALT 22 U/L (12-36); ASPARTATE AMNIOTRANSFERASE,AST 21 IU/L (5-25); BILIRUBIN TOTAL 0.5 mg/dL (0.1-1.3); BLOOD UREA NITROGEN,BUN 19 mg/dL (7-18); CARBON DIOXIDE,CO2 24 mmol/L (21-32); CHLORIDE,CL 108 mmol/L (100-110); CREATININE 1.5 mg/dL (0.70-1.30); EST CRCL DRUG DOSING (CG) 46.70 mL/min; ESTIMATED GFR 48 mL/min (>60); GLUCOSE RANDOM 252 mg/dL (80-116); POTASSIUM,K 5.0 mmol/L (3.5-5.3); PROTEIN TOTAL,TP 5.8 g/dL (6.0-8.0); SODIUM,NA 140 mmol/L (135-145)
[2025-04-14 06:51] LABS: LYMPHOCYTES PERCENT MAN 3 % (13-37); MONOCYTES PERCENT MAN 5 % (4-12); SEG NEUTROPHILS PERCENT MAN 92 % (46-82)
[2025-04-15 06:47] LABS: MEAN PLATELET VOLUME 7.6 fL (6.7-11.0); PLATELET COUNT,PLT 207 x10(3)uL (117-477); RED BLOOD CELL COUNT 3.89 x10(6)uL (3.90-5.90); RED CELL DISTRIBUTION WIDTH 15.7 % (12.4-15.0); WHITE BLOOD CELL COUNT,WBC 13.4 x10-3/uL (3.2-10.1)
[2025-04-15 07:01] LABS: A/G RATIO 1.0; ALANINE AMINOTRANSFERASE,ALT 31 U/L (12-36); ASPARTATE AMNIOTRANSFERASE,AST 29 IU/L (5-25); BILIRUBIN TOTAL 0.6 mg/dL (0.1-1.3); BLOOD UREA NITROGEN,BUN 27 mg/dL (7-18); CARBON DIOXIDE,CO2 24 mmol/L (21-32); CHLORIDE,CL 109 mmol/L (100-110); CREATININE 1.4 mg/dL (0.70-1.30); EST CRCL DRUG DOSING (CG) 50.04 mL/min; ESTIMATED GFR 52 mL/min (>60); GLUCOSE RANDOM 146 mg/dL (80-116); POTASSIUM,K 4.2 mmol/L (3.5-5.3); PROTEIN TOTAL,TP 6.5 g/dL (6.0-8.0); SODIUM,NA 144 mmol/L (135-145)
[2025-04-15 07:18] LABS: LYMPHOCYTES PERCENT MAN 5 % (13-37); MONOCYTES PERCENT MAN 8 % (4-12); SEG NEUTROPHILS PERCENT MAN 87 % (46-82)
[2025-04-16 06:53] LABS: MEAN PLATELET VOLUME 7.3 fL (6.7-11.0); PLATELET COUNT,PLT 186 x10(3)uL (117-477); RED BLOOD CELL COUNT 3.57 x10(6)uL (3.90-5.90); RED CELL DISTRIBUTION WIDTH 15.4 % (12.4-15.0); WHITE BLOOD CELL COUNT,WBC 7.6 x10-3/uL (3.2-10.1)
[2025-04-16 07:05] LABS: A/G RATIO 1.0; ALANINE AMINOTRANSFERASE,ALT 42 U/L (12-36); ASPARTATE AMNIOTRANSFERASE,AST 31 IU/L (5-25); BILIRUBIN TOTAL 0.7 mg/dL (0.1-1.3); BLOOD UREA NITROGEN,BUN 23 mg/dL (7-18); CARBON DIOXIDE,CO2 27 mmol/L (21-32); CHLORIDE,CL 110 mmol/L (100-110); CREATININE 1.3 mg/dL (0.70-1.30); EST CRCL DRUG DOSING (CG) 53.89 mL/min; ESTIMATED GFR 57 mL/min (>60); GLUCOSE RANDOM 71 mg/dL (80-116); POTASSIUM,K 3.4 mmol/L (3.5-5.3); PROTEIN TOTAL,TP 5.4 g/dL (6.0-8.0); SODIUM,NA 144 mmol/L (135-145)
[2025-04-16 07:21] LABS: LYMPHOCYTES PERCENT MAN 21 % (13-37); MONOCYTES PERCENT MAN 10 % (4-12); SEG NEUTROPHILS PERCENT MAN 69 % (46-82)
[2025-04-16] MEDS: Potassium Chloride 20 MEQ Tab.ER PO SCH (08:38)
[2025-04-16 11:20] VITALS: BP 174/103; PULSE 106
== END 2025-04-16 11:08 | disposition home or self-care (01) | DRG 871 ==
LOC: FB.ED 17:15 → FB.MS 19:20
PROVIDERS: ADMIT Emergency Medicine; ATTEND Family Medicine
DX: A41.59 Other Gram-negative sepsis (principal); I50.31 Acute diastolic (congestive) heart failure; J18.9 Pneumonia, unspecified organism; J96.01 Acute respiratory failure with hypoxia; N17.9 Acute kidney failure, unspecified; N39.0 Urinary tract infection, site not specified; E83.42 Hypomagnesemia; I48.91 Unspecified atrial fibrillation; E78.00 Pure hypercholesterolemia, unspecified; G47.30 Sleep apnea, unspecified; I10 Essential (primary) hypertension; G70.00 Myasthenia gravis without (acute) exacerbation; E11.9 Type 2 diabetes mellitus without complications; R65.20 Severe sepsis without septic shock; E86.0 Dehydration; I11.0 Hypertensive heart disease with heart failure; N18.9 Chronic kidney disease, unspecified; E11.22 Type 2 diabetes mellitus with diabetic chronic kidney disease; D64.9 Anemia, unspecified; E66.9 Obesity, unspecified; R53.1 Weakness; Z85.05 Personal history of malignant neoplasm of liver; Z79.01 Long term (current) use of anticoagulants; Z79.4 Long term (current) use of insulin; Z79.899 Other long term (current) drug therapy; Z98.890 Other specified postprocedural states; Z79.52 Long term (current) use of systemic steroids; Z68.35 Body mass index [BMI] 35.0-35.9, adult; Z98.49 Cataract extraction status, unspecified eye; Z85.53 Personal history of malignant neoplasm of renal pelvis; Z85.51 Personal history of malignant neoplasm of bladder; Z79.84 Long term (current) use of oral hypoglycemic drugs; Z86.718 Personal history of other venous thrombosis and embolism; Z90.49 Acquired absence of other specified parts of digestive tract; Z79.82 Long term (current) use of aspirin; Z90.79 Acquired absence of other genital organ(s)
CPT/HCPCS: 36415; 71045; 80053; 81001; 83605; 83735; 83880; 84484; 85025; 86140; 87040 ×2; 87077; 87086; 87088; 87186 ×2; 87426; 93005; 94640; 96361; 96374; 96375; 99285; A9270; J1720; J3490; J7030; J7040; 80048; 82947; 94150; 99223; 99232; 99238; J0696; J1815-GY; J2470; J2919; J7512